=== PATIENT | male | born 1965 | race Caucasian/White ===

== ENCOUNTER 2017-06-29 23:29 | Emergency (ER) | payer BC ==
[~2017-06-29] VITALS: Ht 172.7 cm; Wt 99.2 kg
[2017-06-29 23:39] VITALS: Ht 172.7 cm; Wt 99.2 kg
--- NOTE | 2017-06-30 00:16 | ERD ---
ER Documentation Chief Complaint Chief Complaint pt hit his head 1wk ago by a garage door;c/o pain HPI The patient is a 51-year-old male, presenting to the ER because of intermittent left-sided headache for 1 week ago was now fell on his head a week ago. He complains of left eye discharge for the last 2 day. He denies diplopia, facial pain, neck pain, chest pain, dyspnea, abdominal pain, vomiting. He does not smoke, drinks socially Medical history: Hypertension Surgical history: Right inguinal herniorrhaphy ROS All systems reviewed and are negative except as per history of present illness. Medications Home Meds No Active Prescriptions or Reported Meds Allergies Allergies: Coded Allergies: No Known Allergy (Verified , 07/14/14) PMhx/Soc History of Surgery: No Anesthesia Reaction: No Hx Neurological Disorder: No Hx Respiratory Disorders: No Hx Cardiac Disorders: Yes (HTN, CHEST PAIN) Hx Psychiatric Problems: No Hx Miscellaneous Medical Probl: No Hx Alcohol Use: No Hx Substance Use: No Hx Tobacco Use: No Physical Exam Vitals Vital Signs Date Time Temp Pulse Resp B/P Pulse Ox O2 Delivery O2 Flow Rate FiO2 06/29/17 23:39 97.6 52 20 187/100 97 Physical Exam Const: No acute distress. Head: Atraumatic. Eyes: Bilateral conjunctivae are erythematous, left eye with moderate amount of discharge ENT: Normal External Ears, Nose and Mouth. Bilateral tympanic membranes are within normal limits Neck: Full range of motion. No meningismus. Resp: Clear to auscultation bilaterally. Cardio: Regular rate and rhythm. Abd: Soft, non distended, normal bowel sounds, non tender. Skin: No petechiae or rashes. Back: No midline or flank tenderness. Ext: No cyanosis, or edema. Neur: Awake and alert. No focal deficit Psych: Normal Mood and Affect. Result Diagram: 06/30/175 06/30/175 Results 24 hrs Laboratory Tests Test 06/30/17 00:45 White Blood Count 9.710^3/ul Red Blood Count 4.9810^6/ul Hemoglobin 14.9g/dl Hematocrit 43.7% Mean Corpuscular Volume 87.8fl Mean Corpuscular Hemoglobin 29.9pg Mean Corpuscular Hemoglobin Concent 34.1g/dl Red Cell Distribution Width 13.0% Platelet Count 80621^3/UL Mean Platelet Volume 11.1fl Neutrophils % 72.8% Lymphocytes % 20.1% Monocytes % 4.7% Eosinophils % 1.5% Basophils % 0.5% Nucleated Red Blood Cells % 0.0/100WBC Neutrophils # 7.110^3/ul Lymphocytes # 2.010^3/ul Monocytes # 0.510^3/ul Eosinophils # 0.210^3/ul Basophils # 0.110^3/ul Nucleated Red Blood Cells # 0.010^3/ul Prothrombin Time 12.1Sec Prothrombin Time Ratio 0.9 INR International Normalized Ratio 0.89 Activated Partial Thromboplast Time 28.6Sec Sodium Level 139mmol/L Potassium Level 3.8mmol/L Chloride Level 104mmol/L Carbon Dioxide Level 27mmol/L Anion Gap 12 Blood Urea Nitrogen 19mg/dl Creatinine 0.87mg/dl Glucose Level 124mg/dl Calcium Level 9.3mg/dl Current Medications Medications (Trade) Dose Ordered Sig/Flo Route PRN Reason Start Time Stop Time Status Last Admin Dose Admin Morphine Sulfate (morphine) 4 mg ONCE STAT IV 06/30/17 00:27 06/30/17 00:30 DC 06/30/17 00:49 Tetracaine HCl (Tetracaine 0.5% Steri-Unit Daniela) 4 drop ONCE ONCE LEFT EYE 06/30/17 01:00 06/30/17 01:01 DC Fluorescein Sodium (Rapko-F-Bahtf) 1 strip ONCE ONCE LEFT EYE 06/30/17 01:00 06/30/17 01:01 DC Tetracaine HCl (Tetracaine 0.5% Steri-Unit Daniela) 40 drop STK-MED ONCE .ROUTE 06/30/17 00:38 06/30/17 00:39 DC Fluorescein Sodium 1 strip 1 strip STK-MED ONCE .ROUTE 06/30/17 00:38 06/30/17 00:39 DC Sodium Chloride (NS) 100 ml @ ud STK-MED ONCE .ROUTE 06/30/17 01:14 06/30/17 01:15 DC 06/30/17 02:00 Iohexol 150 ml 150 ml STK-MED ONCE .ROUTE 06/30/17 01:14 06/30/17 01:15 DC 06/30/17 02:00 Vancomycin HCl 250 ml @ 125 mls/hr ONCE IVPB 06/30/17 02:30 06/30/17 04:29 Ceftriaxone Sodium (Rocephin) 50 ml @ 100 mls/hr ONCE ONCE IVPB 06/30/17 02:30 06/30/17 02:59 DC 06/30/17 02:55 Procedures/MDM Procedure: Left eye examination under Wood's lamp Left eye was anesthetized with 4 drops of tetracaine, stained with fluorescent, examined. There is increased uptake at 9 o'clock position visual acuity cannot be done b/c he did not bring his glasses [place] [id number] Radiology Main Line: [phone] DIAGNOSTIC IMAGING REPORT Patient: JONI BELTRE : 1965 Age: 51 Sex: M MR #: [id number] DOS: 06/30/17 0027 Ordering MD: SKYLER LANGE MD Location: [facility] Room/Bed: PROCEDURE: CT head without intravenous contrast CLINICAL INDICATION: Headache. COMPARISON: CT BRAIN 07/14/2014. TECHNIQUE: Axial CT images from skull base to vertex with coronal and sagittal reformats. DOSE: The estimated administered radiation dose was CTDI vol = 44.19 mGy. DLP = 810.25 mGy-cm. One or more of the following dose reduction techniques were used: automated exposure control, adjustment of the mA and/or kV according to patient size, or use of iterative reconstruction. DICOM images are available. FINDINGS: Parenchyma: No acute hemorrhage, large territorial infarction, or mass. Mild parenchymal volume loss. No space occupying intra-axial masses or extra-axial fluid collections. Ventricles: No ventriculomegaly or ventricular effacement. Extra-axial spaces: No herniation or midline shift. Paranasal sinuses: Mild mucosal thickening of the right maxillary sinus. Mastoids and middle ears: Clear. Visualized orbits: Normal. Vessels: No calcified atherosclerotic arterial plaque identified. Bones: Normal. Extracranial soft tissues: Normal. IMPRESSION: 1. No acute intracranial pathology. 2. Mild mucosal thickening of the right maxillary sinus. RPTAT: HRSR Roberty Redlich, Physician Date Time Electronically viewed and signed by Physician Lucho on 06/30/2017 02 :08 RR/ CC: SKYLER LANGE MD [place] [id number] Radiology Main Line: [phone] DIAGNOSTIC IMAGING REPORT Patient: JONI BELTRE : 1965 Age: 51 Sex: M MR #: [id number] DOS: 06/30/17 0027 Ordering MD: SKYLER LANGE MD Location: [facility] Room/Bed: PROCEDURE: CT Orbits with intravenous contrast CLINICAL INDICATION: Left-sided pain. COMPARISON: CT brain 06/30/2017. TECHNIQUE: Axial CT of the orbits following the uneventful administration of 100 mL of Omnipaque-300 intravenous contrast. Coronal and sagittal reformats. DOSE: The estimated administered radiation dose was CTDI vol = 44.19 mGy. DLP = 810.25 mGy-cm. One or more of the following dose reduction techniques were used: automated exposure control, adjustment of the mA and/or kV according to patient size, or use of iterative reconstruction. DICOM images are available. FINDINGS: Orbital soft tissues: Unremarkable. Globes: Normal. Extraocular muscles: Normal. Optic nerves: Normal. Lacrimal glands: Normal. Extra-orbital soft tissues: Left-sided periorbital preseptal soft tissue swelling with heterogeneous enhancement is present on axial image 52 of series 3. Swelling extends medial to involve the nasal ala. There is no evidence of post septal extension, abscess, or drainable fluid collection. Visualized brain parenchyma: No acute hemorrhage, large territorial infarction, mass, or enhancement. Visualized CSF spaces: No herniation, ventricular effacement, ventriculomegaly, or midline shift. Paranasal sinuses: Mild mucosal thickening of the bilateral maxillary and anterior ethmoid sinuses. Small bilateral laura bullosa with opacification of the left-sided bullosa. No air-fluid levels. The ostiomeatal complexes are bilaterally patent. Mastoids and middle ears: Clear. Bones: Normal. Additional comment: Minimal calcified plaque of the bilateral internal carotid artery siphons. IMPRESSION: 1. Left periorbital preseptal soft tissue swelling with heterogeneous enhancement compatible with cellulitis. No evidence of post septal extension or abscess. 2. Mild mucosal thickening of the bilateral maxillary and anterior ethmoid sinuses. 3. Bilateral laura bullosa with opacification of the left sided bullosa. 4. Minimal calcified plaque within the bilateral internal carotid artery siphons. RPTAT: HRSR Physician Lucho Date Time Electronically viewed and signed by Julieta Bermeo Physician on 06/30/2017 02 :20 RR/ CC: SKYLER LANGE MD MEDICAL MAKING DECISION: The patient is a 51-year-old male, presenting with acute left periorbital cellulitis, acute left corneal abrasion, bl bacterial conjunctivitis. He was treated with morphine 4 mg IV for pain, Zofran 4 mg IV for nausea, mycin IV, Rocephin IV for acute periorbital cellulitis. I discussed the patient with on-call hospitalist who recommended to transfer the patient because there is no ophthalmology available Departure Diagnosis: Primary Impression: Periorbital cellulitis of left eye Additional Impressions: Left corneal abrasion Acute bacterial conjunctivitis of both eyes Condition: Stable Comments He is currently awaiting to be transferred SKYLER LANGE MD Jun 30, 2017 00:16
[2017-06-30] MEDS ORDERED: morphine 4 MG/ML VIAL IV STA (00:27)
[2017-06-30] MEDS ORDERED: FLUORESCEIN STRIP ONE (00:38)
[2017-06-30] MEDS ORDERED: TETRACAINE 0.5% 4 ML OPH ONE (00:38)
[2017-06-30] MEDS ORDERED: TETRACAINE 0.5% 4 ML OPH LEFT EYE ONE (01:00)
[2017-06-30] MEDS ORDERED: FLUORESCEIN STRIP LEFT EYE ONE (01:00)
[2017-06-30 01:08] LABS: BASOPHIL # 0.1 10^3/ul (0.0-0.1); BASOPHILS % 0.5 % (0.0-2.0); EOSINOPHILS # 0.2 10^3/ul (0.0-0.5); EOSINOPHILS % 1.5 % (0.0-7.0); HEMATOCRIT 43.7 % (42.0-52.0); HEMOGLOBIN 14.9 g/dl (14.0-18.0); LYMPHOCYTES % 20.1 % (15.0-51.0); MEAN CORPUSCULAR HEMOGLOBIN 29.9 pg (29.0-33.0); MEAN CORPUSCULAR HGB CONC 34.1 g/dl (32.0-37.0); MEAN CORPUSCULAR VOLUME 87.8 fl (82.0-101.0); MEAN PLATELET VOLUME 11.1 fl (7.4-10.4); MONOCYTE # 0.5 10^3/ul (0.3-0.9); MONOCYTES % 4.7 % (0.0-11.0); NEUTROPHIL # 7.1 10^3/ul (1.6-7.5); NEUTROPHILS % 72.8 % (39.0-77.0); PLATELET COUNT 211 10^3/UL (140-415); RED BLOOD COUNT 4.98 10^6/ul (4.70-6.10); WHITE BLOOD COUNT 9.7 10^3/ul (4.8-10.8)
[2017-06-30] MEDS ORDERED: IOHEXOL 300MG/ML 150 ML BTL ONE (01:14)
[2017-06-30] MEDS ORDERED: SOD CHLORIDE 0.9% 100 ML ONE (01:14)
[2017-06-30 01:24] LABS: INR 0.89; PARTIAL THROMBOPLASTIN TIME 28.6 Sec (25.0-35.0); PROTIME 12.1 Sec (11.9-14.9); PT RATIO 0.9
[2017-06-30 01:30] LABS: CALCIUM 9.3 mg/dl (8.4-10.2); CREATININE 0.87 mg/dl (0.61-1.24); POTASSIUM 3.8 mmol/L (3.5-5.1)
--- NOTE | 2017-06-30 02:09 | RADRPT ---
AMENDMENT: 06/30/2017 4:12:10 AM Vincenzo Bermeo Md Addendum report: Left preseptal periorbital soft tissue swelling is present. Refer to dedicated CT orbits of the same day for full details. RPTAT: HRSR PROCEDURE: CT head without intravenous contrast CLINICAL INDICATION: Headache. COMPARISON: CT BRAIN 07/14/2014. TECHNIQUE: Axial CT images from skull base to vertex with coronal and sagittal reformats. DOSE: The estimated administered radiation dose was CTDI vol = 44.19 mGy. DLP = 810.25 mGy-cm. One or more of the following dose reduction techniques were used: automated exposure control, adjustment of the mA and/or kV according to patient size, or use of iterative reconstruction. DICOM images are available. FINDINGS: Parenchyma: No acute hemorrhage, large territorial infarction, or mass. Mild parenchymal volume loss . No space occupying intra-axial masses or extra-axial fluid collections. Ventricles: No ventriculomegaly or ventricular effacement. Extra-axial spaces: No herniation or midline shift. Paranasal sinuses: Mild mucosal thickening of the right maxillary sinus. Mastoids and middle ears: Clear. Visualized orbits: Normal. Vessels: No calcified atherosclerotic arterial plaque identified. Bones: Normal. Extracranial soft tissues: Normal. IMPRESSION: 1. No acute intracranial pathology. 2. Mild mucosal thickening of the right maxillary sinus. RPTAT: HRSR Physician Lucho Date Time Electronically viewed and signed by Physician Lucho on 06/30/2017 04:12 RR/
--- NOTE | 2017-06-30 02:20 | RADRPT ---
PROCEDURE: CT Orbits with intravenous contrast CLINICAL INDICATION: Left-sided pain. COMPARISON: CT brain 06/30/2017. TECHNIQUE: Axial CT of the orbits following the uneventful administration of 100 mL of Omnipaque-30 0 intravenous contrast. Coronal and sagittal reformats. DOSE: The estimated administered radiation dose was CTDI vol = 44.19 mGy. DLP = 810.25 mGy-cm. One or more of the following dose reduction techniques were used: automated exposure control, adjustment of the mA and/or kV according to patient size, or use of iterative reconstruction. DICOM images are available. FINDINGS: Orbital soft tissues: Unremarkable. Globes: Normal. Extraocular muscles: Normal. Optic nerves: Normal. Lacrimal glands: Normal. Extra-orbital soft tissues: Left-sided periorbital preseptal soft tissue swelling with heterogeneou s enhancement is present on axial image 52 of series 3. Swelling extends medial to involve the nasal ala. There is no evidence of post septal extension, abscess, or drainable fluid collection. Visualized brain parenchyma: No acute hemorrhage, large territorial infarction, mass, or enhancement . Visualized CSF spaces: No herniation, ventricular effacement, ventriculomegaly, or midline shift. Paranasal sinuses: Mild mucosal thickening of the bilateral maxillary and anterior ethmoid sinuses. Small bilateral laura bullosa with opacification of the left-sided bullosa. No air-fluid levels. Th e ostiomeatal complexes are bilaterally patent. Mastoids and middle ears: Clear. Bones: Normal. Additional comment: Minimal calcified plaque of the bilateral internal carotid artery siphons. IMPRESSION: 1. Left periorbital preseptal soft tissue swelling with heterogeneous enhancement compatible with c ellulitis. No evidence of post septal extension or abscess. 2. Mild mucosal thickening of the bilateral maxillary and anterior ethmoid sinuses. 3. Bilateral laura bullosa with opacification of the left sided bullosa. 4. Minimal calcified plaque within the bilateral internal carotid artery siphons. RPTAT: HRSR Physician Lucho Date Time Electronically viewed and signed by Physician Lucho on 06/30/2017 02:20 RR/
[2017-06-30] MEDS ORDERED: VANCOMYCIN 1 GM (PMX) 250 ML IVPB SCH (02:30)
[2017-06-30] MEDS ORDERED: CEFTRIAXONE 2 GM/50 ML (PMX) 50 ML IVPB ONE (02:30)
[2017-06-30] MEDS ORDERED: TERAZOSIN 5 MG CAP PO ONE (07:30)
[2017-06-30] MEDS ORDERED: BENA40TA41 PO (17:20)
[2017-06-30] MEDS ORDERED: ERGO500037 PO (17:20)
[2017-06-30] MEDS ORDERED: DOCU-159 PO (17:20)
[2017-06-30] MEDS ORDERED: ASPI-664 PO (17:21)
[2017-06-30] MEDS ORDERED: ATOR20TA38 PO (17:21)
[2017-06-30] MEDS ORDERED: TERA10CA42 PO (17:21)
[2017-06-30] MEDS ORDERED: FINA5TAB4 PO (17:22)
[2017-06-30] MEDS ORDERED: ESOM20CA32 PO (17:22)
[2017-06-30 17:39] VITALS: BP 160/97; PULSE 66; RESP 18; TEMP 98.1
== END 2017-06-30 18:01 | disposition short-term general hospital (02) ==
LOC: FTE 23:29 → E/R 06-30 18:01
DX: L03.213 Periorbital cellulitis (principal); S05.02XA Injury of conjunctiva and corneal abrasion without foreign body, left eye, initial encounter; H10.023 Other mucopurulent conjunctivitis, bilateral; I10 Essential (primary) hypertension; R40.2142 Coma scale, eyes open, spontaneous, at arrival to emergency department; R40.2252 Coma scale, best verbal response, oriented, at arrival to emergency department; R40.2362 Coma scale, best motor response, obeys commands, at arrival to emergency department; R07.9 Chest pain, unspecified; R51 Headache; W01.190A Fall on same level from slipping, tripping and stumbling with subsequent striking against furniture, initial encounter; Y92.9 Unspecified place or not applicable
CPT/HCPCS: 36415; 70450; 70480; 80048; 85025; 85610; 85730; 96374; 96375; 99285; J0696; J2270; J3370; Q9967; Z7610